=== PATIENT | female | born 1970 | race Caucasian/White ===

== ENCOUNTER → 2020-08-30 11:31 | Outpatient (BNVA) | payer MEDICAID, SELFPAY | PROVIDERS: Family Provider Family Medicine; PCP Family Medicine; Visit Provider Family Medicine | DX: E03.9 Hypothyroidism, unspecified (principal); J45.30 Mild persistent asthma, uncomplicated; M79.7 Fibromyalgia; F41.9 Anxiety disorder, unspecified; F32.9 Major depressive disorder, single episode, unspecified; Z00.00 Encounter for general adult medical examination without abnormal findings; Z86.69 Personal history of other diseases of the nervous system and sense organs | CPT/HCPCS: 80053; 84443; 85025 ==

== ENCOUNTER 2020-10-11 11:08 | Outpatient (CLI) | payer MEDICAID, SELFPAY ==
--- NOTE | 2020-10-11 11:12 | MM_ITS ---
WS: [id number] BILATERAL SCREENING DIGITAL MAMMOGRAM WITH CAD HISTORY: SCREENING COMPARISON: 09/25/2018 and 12/22/2015 Bilateral CC and MLO views submitted. Computer aided detection analyzed. Breast composition: There are scattered areas of fibroglandular density. No suspicious masses, microc alcifications or architectural distortion. Benign calcification in the central RIGHT breast. MM/[place] [id number] IMPRESSION: BI-RADS: 2-Benign FOLLOW UP: 1 Year Follow-up
== END 2020-10-11 11:09 | disposition home or self-care (01) ==
LOC: RADSHAW 11:10
PROVIDERS: Family Provider Family Medicine; PCP Family Medicine; Visit Provider Family Medicine
DX: Z12.31 Encounter for screening mammogram for malignant neoplasm of breast (principal)
CPT/HCPCS: 77067

== ENCOUNTER → 2021-03-14 13:45 | Outpatient (BNVA) | payer MEDICAID, SELFPAY | PROVIDERS: Family Provider Family Medicine; PCP Family Medicine; Visit Provider Nurse Practitioner Women's Health | DX: Z11.3 Encounter for screening for infections with a predominantly sexual mode of transmission (principal); N95.1 Menopausal and female climacteric states; N39.3 Stress incontinence (female) (male); R35.1 Nocturia | CPT/HCPCS: 87491; 87591; 87661 ==

== ENCOUNTER → 2021-03-28 10:08 | Outpatient (BNVA) | payer MEDICAID, SELFPAY | PROVIDERS: Family Provider Family Medicine; PCP Family Medicine; Visit Provider Obstetrics & Gynecology | DX: N39.3 Stress incontinence (female) (male) (principal); N81.10 Cystocele, unspecified | CPT/HCPCS: 81000 ==

== ENCOUNTER → 2021-05-19 08:38 | Outpatient (BNVA) | payer MEDICAID, SELFPAY | PROVIDERS: Family Provider Family Medicine; PCP Family Medicine; Visit Provider Obstetrics & Gynecology | DX: N39.3 Stress incontinence (female) (male) (principal) | CPT/HCPCS: 87635 ==

== ENCOUNTER 2021-05-24 12:30 | Observation (INO) | payer MEDICAID, SELFPAY ==
[2021-05-19 10:15] VITALS: BMI 32.1
--- NOTE | 2021-05-19 10:41 | P.ANESASSM_ITS ---
Pre-Anesthetic Assessment Pre-Anesthetic Assessment: Height/Weight: Height 1.8 m Weight 104.326 kg Proposed Procedure: Operation Date: 05/24/21 19:45 Proposed Procedures p Sling 53067 N39.3(Not Applicable) - Ephraim Harden MD Was Beta Leti taken within 24 hours: N/A Was Clonidine taken within 24 hours: N/A Social: Social History: Tobacco (Vapes) and No alcohol Exam: Pre-Anes Outpt Exam: alert, oriented x 3, clear to auscultation bilaterally and regular rate & rhythm Airway: Submandibular: WNL Cervical ROM: WNL MP: 2 Dentition: Full Pulmonary: Pulmonary: Asthma Metabolic: Metabolic: Thyroid Musc/skel: Musc/skel: Fibromyalgia Neuropsych: Neuropsych: Anxiety and Depression Anesthetic Plan: ASA status: 2 Anesthesia: General Risk of > 500 ml blood loss (7ml/kg in children): No PFSH Anesthesia PFSH: Medical History Anxiety and depression Fibromyalgia affecting multiple sites History of Guillain-[place] syndrome Hypothyroid Mild persistent asthma No pertinent past medical history neghx: htn,dm,dvt/pe PCP: Dr. 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 Cotto; had multiple adhesions. Hx of tonsillectomy (~1984) Family History Mother Hypertension Thyroid disease Sister Thyroid disease Denies family history of Colon cancer Ovarian cancer Diabetes Heart disease Hypercholesteremia Breast cancer Uterine cancer Stroke Data Anesthesia Cardiac Studies: No Data to Display
[2021-05-24] VITALS (18 sets, daily range): BP systolic 119–153; BP diastolic 64–93; PULSE 51–66; RESP 15–18; TEMP 36.3–37.1; O2SAT 92–98
[2021-05-24] MEDS: scopolamine 1.5 Patch 1 PATCH TRANSDERMA (08:02)
[2021-05-24] MEDS: lactated ringers 500 ML IV (08:04)
--- NOTE | 2021-05-24 08:31 | P.ANESUD_ITS ---
Pre-Anesthetic Update Pre-Anesthetic Assessment: Date of Surgery/Procedure: 05/24/21 Preop Estela gnosis: Cystocele stage I, stress urinary incontinence Proposed Procedure: Operation Date: 05/24/21 19:45 Proposed Procedures p Sling 04491 N39.3(Not Applicable) - Ephraim Harden MD Any changes to Pre-Anesthetic Assessment?: No Last Intake: Intake Last Liquid Date 05/23/21 Last Liquid Time 22:00 Last Solid Date 05/23/21 Last Solid Time 13:00 Vitals: Temperature 97.4 F L 05/24/21 07:50 Temperature Source Temporal Artery S can 05/24/21 07:50 Pulse Rate 58 L 05/24/21 07:50 Respiratory Rate 18 05/24/21 07:50 Blood Pressure 145/85 05/24/21 07:50 Blood Pressure Doreen n 105 05/24/21 07:50 Pulse Oximetry 98 05/24/21 07:50 Oxygen Delivery Me thod 05/24/21 07:50 Exam: Pre-Anes Outpt Exam: alert, oriented x 3, clear to auscultation bilaterally and regular rate & rhythm Cardiac Studies: No Data to Display
[2021-05-24 08:37] LABS: Basophils # 0.1 10^3/uL (0.0-0.1); Basophils % 0.6 %; Eosinophils # 0.4 10^3/uL (0.0-0.8); Eosinophils % 3.7 %; Hematocrit 38.7 % (37.0-47.0); Hemoglobin 12.5 g/dL (11.5-15.3); Lymphocytes # 2.4 10^3/uL (0.8-4.8); Lymphocytes % 24.8 %; Mean Corpuscular HGB Conc 32.3 g/dL (30.0-36.0); Mean Platelet Volume 9.2 fL (7.4-10.4); Monocytes # 0.6 10^3/uL (0.2-0.9); Monocytes % 6.3 %; Neutrophils # 6.13 10^3/uL (1.8-7.7); Neutrophils % 64.3 %; Nucleated Red Blood Cells % 0 %; Platelet Count 312 10^3/cmm (130-400); Red Blood Count 3.91 10^6/uL (4.1-5.3); Red Cell Distribution Width 12.6 % (12.1-15.1); White Blood Count 9.5 10^3/uL (4.0-10.0)
[2021-05-24 09:04] LABS: Anion Gap 15.2 (5-19); Blood Urea Nitrogen 20 mg/dL (6-20); Calcium 8.6 mg/dL (8.5-10.5); Carbon Dioxide 22 mmol/L (22-29); Chloride 104 mmol/L (98-107); Glomerular Filtration Rate 87.5 mL/min (90-130); Glucose 84 mg/dL (65-115); Osmolality Calculated 286 mOsm/kg (285-295); Potassium 4.2 mmol/L (3.5-5.1); Sodium 137 mmol/L (136-145)
[2021-05-24] MEDS: sodium chloride 0.9% 500 ML 999 ML IV (09:14)
[2021-05-24] MEDS: midazolam 1 mg/mL INJ 2 mL 2 MG IVP (09:15)
[2021-05-24 09:22] LABS: Add Urine Microscopic? YES; Bacteria Urine TRACE /hpf; Bilirubin Urine 1+ (Negative); Blood Urine Neg (Negative); Glucose Urine UA Norm (Normal); Ketones Urine Negative (Negative); Leukocyte Esterase Urine Negative (Negative); Mucus Urine 2+ /hpf; Nitrate Urine Negative (Negative); Protein Urine Neg (Negative); Urine Appearance SL Hazy (CLEAR); Urine Color Yellow (Yellow); Urobilinogen Urine Norm (Negative); WBC Urine 0-4 /hpf (0-5); pH Urine 5 (5-7)
[2021-05-24 09:23] LABS: Add Urine Culture? No
--- NOTE | 2021-05-24 11:09 | W.PM.OPSUD ---
Surgery/Procedure H&P Update DATE OF PROCEDURE: May 24, 2021 DATE H&P PERFORMED: 05/19/21 H&P UPDATE INFORMATION: I have reviewed H&P completed within last 30 days, I have examined patient prior to procedure and No changes to prior documentation PREOP DIAGNOSIS: Cystocele stage I, stress urinary incontinence PLANNED PROCEDURE: Operation Date: 05/24/21 10:15 Proposed Procedures p Sling 79650 N39.3(Not Applicable) - Ephraim Harden MD
--- NOTE | 2021-05-24 12:20 | PM.OP ---
Operative Report Date of procedure: May 24, 2021 Pre-op Diagnosis: Cystocele stage I, stress urinary incontinence Post-op diagnosis: same Procedure Done: Single incision mid urethral sling Pathology: none sent Surgeon: Ephraim Harden MD Estimated blood loss (mL): 10 IV fluids (mL): 800 Urine output (mL): 300 Condition: stable Disposition: PACU Procedure: After obtaining informed consent, the patient was taken to the operating room and placed in the supine position, given general anesthesia, and prepped and draped in sterile fashion. The abdomen, vulva and vagina were prepped and draped in a sterile manner. A time out procedure was performed. The anterior vaginal mucosa beneath the midurethra was infiltrated with 0.5% Marcaine with epinephrine. A vertical midline incision was made beneath the midurethra, nearly 1.5 cm length. Careful submucosal dissection was performed bilaterally up to the interior portion of the inferior pubic ramus. The insertion of adductor longus tendon on the patient?s pubic ramus was identified as reference land brandon. Palpated the notch along the internal edge of ischiopubic ramus where the adductor longus tendon and the inferior pubic ramus meet. The Altis single incision sling (SIS) was selected. With thin porcine graft the mesh of the sling was lined anteriorly and posteriorly with the graft. Then the needle of the SIS inserted aiming at the location of this notch. One of the integrated self-fixating tips place onto the needle by sliding it over the end of the needle. The needle/sling assembly was inserted toward the location of identified reference notch making sure that the flat of the handle is perpendicular to the desired path. The needle was tracked along the posterior surface of the ischiopubic ramus until the midline brandon on the mesh is approximately at the midline position under the urethra. The needle was removed and the same was repeated on the contralateral side until the appropriate sling tension under the urethra was achieved ensuring that the mesh lays flat. The needle was removed and vaginal incision was closed in a running interlocking fashion with 2-0 Vicryl. Excellent hemostasis was obtained. Sponge, lap, needle, and instrument counts were correct times three. The patient was taken to the recovery room, awake and in stable condition.
[2021-05-24] MEDS: fentaNYL 50 mcg/mL INJ 2mL IVP (12:27)
[2021-05-24] MEDS: albuterol 8 gm MDI 2 PUFF INHALATION ×2 (13:37→22:45)
[2021-05-24] MEDS: dextrose 5%-lactated ringers 1,000 ML 125 ML IV ×2 (14:06→22:51)
[2021-05-24] MEDS: HYDROcodone-acetaminophen 5-325 mg Tablet PO ×2 (14:17→20:14)
--- NOTE | 2021-05-24 14:34 | ANE.PACU2 ---
Inpatient post-anesthesia follow up: Airway intact: Yes Vital signs: Temperature 97.5 F Pulse Rate 62 Respiratory Rate 17 Blood Pressure 134/81 Pulse Oximetry 97 Oxygen Delivery Me thod Room Air Oxygen Flow Rate Fraction of Inspir ed Oxygen Hydration adequate: Yes Nausea and vomiting: No Pain level: 1 Mental status: Baseline
[2021-05-24] MEDS: docusate sodium 100 mg Capsule PO (18:49)
[2021-05-24] MEDS: ibuprofen 800 mg tablet PO (20:14)
[2021-05-25] MEDS: HYDROcodone-acetaminophen 5-325 mg Tablet PO (02:12)
[2021-05-25 05:39] LABS: Hematocrit 33.8 % (37.0-47.0); Hemoglobin 10.7 g/dL (11.5-15.3); Mean Corpuscular HGB Conc 31.7 g/dL (30.0-36.0); Mean Corpuscular Hemoglobin 31.8 pg (28.0-34.0); Mean Corpuscular Volume 100.6 fL (81-99); Mean Platelet Volume 9.3 fL (7.4-10.4); Platelet Count 298 10^3/cmm (130-400); Red Blood Count 3.36 10^6/uL (4.1-5.3); Red Cell Distribution Width 12.3 % (12.1-15.1); White Blood Count 12.3 10^3/uL (4.0-10.0)
[2021-05-25] MEDS: docusate sodium 100 mg Capsule PO (08:46)
[2021-05-25] MEDS: estradiol 1 mg Tablet PO (08:46)
[2021-05-25] MEDS: duloxetine 20 mg Capsule PO (08:47)
[2021-05-25] MEDS: levothyroxine 25 mcg Tablet PO (08:47)
[2021-05-25] MEDS: ibuprofen 800 mg tablet PO (08:47)
--- NOTE | 2021-05-25 09:24 | P.DS_ITS ---
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 Cutler female, with stress urinary incontinence. Admitted for planned single incision mid urethral sling. The procedure was performed without complications. Postop Overnight observation uneventful. Tolerated diet well. Ambulating without complication. PVR within normal limits. She is afebrile hemodynamically stable. Physical Exam Narrative: EXAM NARRATIVE: GA: Alert and oriented ?3. HEENT: WNL. Heart: Regular rate and rhythm. Lungs: Clear to auscultation bilaterally. Abdomen: Bowel sounds present, nontender, PNEUMATIC TUBE FITTER: Spotting. Extremities: No edema, no cyanosis, no calves pain. Urinary Catheter Management^: Singh: Cath Placed During This Visit: yes Urinary Catheter Date of Insertion: 05/24/21 Urinary Catheter Time of Insertion: 12:03 Discharge Data Data Completed and Pending: Labs from last 24 hours 05/25/21 05/24/21 05:32 08:00 WBC 12.3 H RBC 3.36 L Hgb 10.7 L Hct 33.8 L MCV 100.6 H MCH 31.8 MCHC 31.7 RDW 12.3 Plt Count 298 MPV 9.3 Blood Type O Positive Rho(D) Type Positive / 4+ Antibody Screen Negative Vitals: Last Vital Signs Temp 98.1 F 05/24/21 15:07 Pulse 64 05/24/21 22:45 Resp 18 05/24/21 22:45 BP 128/77 05/24/21 18:05 Pulse Ox 97 05/24/21 22:45 Discharge Plan Discharge Patient Disposition: Home Condition: Stable Prescriptions: New ibuprofen 800 mg tablet 800 mg PO TID PRN (Reason: pain) Qty: 60 RF: 0 hydrocodone-acetaminophen 5-325 mg tablet 1 tab PO Q4H PRN (Reason: pain) Qty: 10 RF: 0 nitrofurantoin macrocrystal 100 mg capsule 100 mg PO Q24H Qty: 10 RF: 0 Continued duloxetine [Cymbalta] 20 mg capsule,delayed release(DR/EC) 20 mg PO DAILY RF: 0 Spiriva Respimat 1.25 mcg/actuation mist 2 puff INHALATION DAILY Qty: 4 RF: 2 fluticasone propion-salmeterol [Advair Diskus] 250-50 mcg/dose blister with device 1 inh INHALATION BID 30 Days Qty: 60 RF: 4 levothyroxine [Levo-T] 25 mcg tablet 25 mcg PO DAILY 90 Days Qty: 90 RF: 1 diazepam 2 mg tablet 2 mg PO TID PRN (Reason: anxiety) Qty: 70 RF: 3 estradiol 1 mg tablet See Rx Instructions .ROUTE .COMPLEX Qty: 90 RF: 1 hydrocodone-acetaminophen 5-325 mg tablet 1 tab PO BID PRN (Reason: pain) 30 Days Qty: 60 RF: 0 tizanidine 4 mg capsule 4 mg PO TID PRN (Reason: muscle spasticity) Qty: 45 RF: 5 albuterol sulfate [Ventolin HFA] 90 mcg/actuation HFA aerosol inhaler 2 puff INHALATION QID PRN (Reason: shortness of breath or wheezing) 30 Days Qty: 8 RF: 5 Discharge Orders: Discharge Order (Routine); Ordered 05/25/21 Ordered By: Ephraim Harden Referrals: Ephraim Harden MD [Physician] - 2 weeks Discharge Diet: Usual diet Discharge Activity: Increase activity as tolerated Patient Instructions: Bladder Sling Procedures (DC), Opioid Safety Activity Restrictions/Additional Instructions: 1. Please call [facility] on next working day to make your post-operative appointment in 2 weeks. 2. Please stay home until you come back to the clinic on first post-operative check up. 3. Please follow instructions on your medications CAREFULLY. 4. If you have abdominal incision, do not cover it unless dressing is necessary because of drainage. OK to shower, but avoid bath. Leave steri-strips until they fall off. If they are still on one week after surgery, you may remove them. 5. If you had vaginal surgery or vaginal repair, Dr. Harden may instruct you to take SITZ bath. 6. Yellow, blood tinged odorous vaginal discharge is usually normal after hysterectomy or vaginal surgeries. 7. No sexual intercourse, tampons, or douches until you are completely released from the post-operative care. 8. Avoid constipation by eating right and maybe using some Metamucil or Milk of Magnesia. 9. All prescription refills are given during the working hours. Please do no wait till it runs out. Call the clinic at [phone] before your medication runs out. The clinic will get in touch with your doctor to prescribe medications if necessary. 10. Please remain within 40 mile radius from our hospital because emergencies do happen now and then during the post-operative period. 11. If you have stairs at home, take one step at a time slowly and minimize the number of trips. It helps to stay in one floor for the next few days. No lifting except what you can lift by one hand until you are released from the post-operative care. 12. Driving is discouraged until you are well healed. It may be 3-4 weeks before you feel strong enough to drive. You should be able to turn and look through the rear window without pain and you should be able to push the brake pedal very hard without pain before you drive. No fast rules, but SAFETY should be your primary concern. DO NOT drive if you are on sedating medications such as narcotics. 13. Call the clinic (during working hours) to make urgent appointment or go to the Emergency room, if any of the following occurs: i. Vaginal bleeding becomes heavy, more than a period. ii. Incision becomes red and sore, or drains pus. iii. Your temperature is over 100.4 or you have chill. iv. IV site becomes red and swollen (a little ``knot?? is usually OK) v. Persistent nausea and vomiting vi. Persistent constipation or diarrhea vii. Rash or allergic reaction to medications. 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
--- NOTE | 2021-05-25 10:06 | PC.NURSE ---
Called Tay in pharmacy, to discuss patient's history of Guillian [place] syndrome. Asked Tay if it was ok with the patient to receive the pneumonia vaccine before discharge. Tay was not sure if it was acceptable for the patient to receive the vaccine. The patient's research found that it was ok for her to receive the pneumonia vaccine as long as it was not the medication that caused the syndrome, that the patient could not receive flu vaccines for sure. 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
[2021-05-25] MEDS: albuterol 8 gm MDI 2 PUFF INHALATION (10:26)
[2021-05-25 10:27] VITALS: BP 144/100; PULSE 59; PULSE 77; RESP 16; RESP 18; TEMP 36.5; O2SAT 98
[2021-05-25 10:31] VITALS: PULSE 61
== END 2021-05-25 10:50 | disposition home or self-care (01) ==
LOC: OBGYN 12:30
PROVIDERS: Admitting Provider Obstetrics & Gynecology; PCP Family Medicine; Visit Provider Obstetrics & Gynecology
PROC: (CPT 57288; principal; 2021-05-24 10:15)
DX: N81.10 Cystocele, unspecified (principal); J45.909 Unspecified asthma, uncomplicated; M79.7 Fibromyalgia; E03.9 Hypothyroidism, unspecified; Z82.49 Family history of ischemic heart disease and other diseases of the circulatory system; Z87.891 Personal history of nicotine dependence
CPT/HCPCS: 57288; 36415; 51798; 80048; 81001; 85025; 85027; 86850; 86900; 94640; 96374; C1713; G0378; J0690; J1100; J1885; J2250; J2405; J2704; J3010; J7040; J8499

== ENCOUNTER → 2021-06-12 15:00 | Outpatient (BNVA) | payer MEDICAID, SELFPAY | PROVIDERS: PCP Family Medicine; Visit Provider Family Medicine | DX: D64.9 Anemia, unspecified (principal); F41.9 Anxiety disorder, unspecified; F32.9 Major depressive disorder, single episode, unspecified; M79.7 Fibromyalgia; D50.8 Other iron deficiency anemias | CPT/HCPCS: 85018 ==

== ENCOUNTER → 2021-08-23 14:09 | Outpatient (BNVA) | payer MEDICAID, SELFPAY | PROVIDERS: PCP Family Medicine; Visit Provider Family Medicine | DX: Z11.52 Encounter for screening for COVID-19 (principal); Z20.822 Contact with and (suspected) exposure to COVID-19 | CPT/HCPCS: 87635 ==

== ENCOUNTER → 2022-02-08 13:41 | Outpatient (BNVA) | payer MEDICAID, SELFPAY | PROVIDERS: PCP Family Medicine; Visit Provider Nurse Practitioner | DX: D50.8 Other iron deficiency anemias (principal); Z20.822 Contact with and (suspected) exposure to COVID-19 | CPT/HCPCS: 87635 ==

== ENCOUNTER 2022-02-14 05:52 | Day surgery (SDC) | payer MEDICAID, SELFPAY ==
[2022-02-12 11:22] VITALS: BMI 31.5
[2022-02-14 06:05] VITALS: BP 135/98; PULSE 59; RESP 17; TEMP 36.2; O2SAT 96
[2022-02-14] MEDS: sodium chloride 0.9% 1,000 ML 30 ML IV (06:15)
--- NOTE | 2022-02-14 06:51 | ANES.PREANE2 ---
Documented by User: Carlos Denis CRNA 02/14/22 06:55 Pre-Anesthetic Assessment Height/Weight: Height 1.78 m Weight 99.79 kg Temp Pulse Resp BP Pulse Ox 97.2 F L 59 L 17 135/98 96 02/14/22 06:05 02/14/22 06:05 02/14/22 06:05 02/14/22 06:05 02/14/22 06:05 Preop Diagnosis: upper gi symptoms Operation Date: 02/14/22 07:00 Proposed Procedures p EGD/Colon 80566 R10.9(Not Applicable) - David Wheeler MD s Colonoscopy 29182 R19.7(Not Applicable) - David Wheeler MD Familial anesthetic complications: none Was Beta Leti taken within 24 hours: N/A Was Clonidine taken within 24 hours: N/A Last intake: Intake Last Liquid Date 02/13/22 Last Liquid Time 22:30 Last Solid Date 02/12/22 Last Solid Time 20:00 Social No alcohol and No tobacco Exam alert, oriented x 3, clear to auscultation bilaterally and regular rate & rhythm Airway Submandibular: within normal limits Cervical ROM: within normal limits Mallampati: Class I Dentition: full Pulmonary Asthma, Exertional Dyspnea and Sleep Apnea CV/HEM Arrythmia None reported Hepatic None reported GI None reported Metabolic Thyroid Disease [facility] Fibromyalgia and Lower Back Pain Neuropsych Anxiety and Depression Anesthetic Plan ASA status: 2 Anesthesia: MAC Risk of > 500 ml blood loss (7ml/kg in children): No Medications/Allergies Home Medications Medication Instructions Recorded Confirmed Last Taken Type duloxetine 20 mg capsule,delayed 20 mg PO DAILY cap 05/19/21 02/14/22 02/13/22 History release (Cymbalta) fluticasone 250 mcg-salmeterol 50 1 inh INHALATION BID 30 Days #60 06/26/21 02/14/22 02/13/22 Rx mcg/dose blistr powdr for each inhalation (Advair Diskus) levothyroxine 25 mcg tablet 25 mcg PO DAILY 90 Days #90 tab 10/09/21 02/14/22 02/13/22 Rx (Levo-T) diazepam 2 mg tablet 2 mg PO TID PRN #70 tab 12/11/21 02/14/22 02/13/22 Rx tizanidine 4 mg capsule 4 mg PO TID PRN #45 cap 01/01/22 02/14/22 02/13/22 Rx albuterol sulfate 90 mcg/actuation 2 puff INHALATION QID PRN 30 Days 01/29/22 02/14/22 02/14/22 Rx aerosol inhaler (Ventolin HFA) #8 gm estradiol 1 mg tablet 1 mg PO DAILY 02/12/22 02/14/22 02/13/22 History ferrous sulfate 325 mg (65 mg 325 mg PO DAILY 02/12/22 02/14/22 02/13/22 History iron) tablet hydrocodone 5 mg-acetaminophen 325 1 tab PO BID 02/12/22 02/14/22 02/13/22 History mg tablet Allergies Allergy/AdvReac Type Severity Reaction Status Date / Time Sulfa (Sulfonamide Allergy Severe vomiting Verified 02/14/22 06:04 Antibiotics) Current Medications Generic Name Dose Route Start Last Admin Trade Name Freq PRN Reason Stop Dose Admin Sodium Chloride 1,000 mls @ 30 mls/hr 02/14/22 06:15 02/14/22 06:15 Sodium Chloride 0.9% IV 02/15/22 06:14 30 mls/hr .Q24H ELVIN Administration [facility] Anesthesia Medical History (Updated 10/24/21 @ 10:19 by David Wheeler MD) Anxiety and depression Fibromyalgia affecting multiple sites History of Guillain-[place] syndrome Hypothyroid Mild persistent asthma Surgical History (Updated 02/14/22 @ 07:28 by David Wheeler MD) H/O esophagogastroduodenoscopy (02/14/22) H/O vaginal surgery 05/24/2021- single incision mid urethral sling performed by Dr. 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 Cotto; had multiple adhesions. Hx of tonsillectomy (~1984) Status post colonoscopy (02/14/22) Family History Mother Hypertension Thyroid disease Sister Thyroid disease Denies family history of Colon cancer Ovarian cancer Diabetes Heart disease Hypercholesteremia Breast cancer Uterine cancer Stroke Social History Smoking and tobacco status: never smoked Alcohol intake: never Female Reproductive History Spontaneous abortions: No Data Anesthesia Cardiac Studies: No Data to Display
--- NOTE | 2022-02-14 07:02 | W.PM.OPSFHP ---
Same Day Surgery H&P Indication for Procedure/HPI DATE OF PROCEDURE: February 14, 2022 CHIEF COMPLAINT/INDICATIONFOR SURGICAL PROCEDURE: egd/colon PREOP DIAGNOSIS: upper gi symptoms PLANNED PROCEDURE: Operation Date: 02/14/22 07:00 Proposed Procedures p EGD/Colon 61572 R10.9(Not Applicable) - David Wheeler MD s Colonoscopy 35749 R19.7(Not Applicable) - David Wheeler MD Medications/Allergies* Home Medications Medication Instructions Recorded Confirmed Type duloxetine 20 mg capsule,delayed 20 mg PO DAILY cap 05/19/21 02/14/22 History release (Cymbalta) estradiol 1 mg tablet 1 mg PO DAILY 02/12/22 02/14/22 History ferrous sulfate 325 mg (65 mg 325 mg PO DAILY 02/12/22 02/14/22 History iron) tablet hydrocodone 5 mg-acetaminophen 325 1 tab PO BID 02/12/22 02/14/22 History mg tablet Allergies/Adverse Reactions Allergy/AdvReac Type Severity Reaction Status Date / Time Sulfa (Sulfonamide Allergy Severe vomiting Verified 02/14/22 06:04 Antibiotics) Current Medications: Generic Name Dose Route Start Last Admin Trade Name Freq PRN Reason Stop Dose Admin Sodium Chloride 1,000 mls @ 30 mls/hr 02/14/22 06:15 02/14/22 06:15 Sodium Chloride 0.9% IV 02/15/22 06:14 30 mls/hr .Q24H ELVIN Administration Pertinent History/Comorbid Conditions* Medical History (Updated 10/24/21 @ 10:19 by David Wheeler MD) Anxiety and depression Fibromyalgia affecting multiple sites History of Guillain-[place] syndrome Hypothyroid Mild persistent asthma Surgical History (Updated 10/24/21 @ 10:19 by David Wheeler MD) H/O vaginal surgery 05/24/2021- single incision mid urethral sling performed by Dr. 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 Cotto; had multiple adhesions. 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
--- NOTE | 2022-02-14 07:34 | ANE.PACU2 ---
Documented by User: Carlos Denis CRNA 02/14/22 07:34 Inpatient post-anesthesia follow up: Vital signs: Temperature 97.2 F Pulse Rate 59 Respiratory Rate 17 Blood Pressure 135/98 Pulse Oximetry 96 Oxygen Delivery Me thod Room Air Oxygen Flow Rate Fraction of Inspir ed Oxygen
[2022-02-14 07:35] VITALS: BP 137/60; PULSE 67; RESP 16; TEMP 36.5; O2SAT 93
== END 2022-02-14 07:55 | disposition home or self-care (01) ==
PROVIDERS: PCP Family Medicine; Visit Provider Surgery
PROC: 0DJ08ZZ Inspection of Upper Intestinal Tract, Via Natural or Artificial Opening Endoscopic (ICD-10-PCS; CPT 43235; principal; 2022-02-14 07:00)
PROC: 0DJD8ZZ Inspection of Lower Intestinal Tract, Via Natural or Artificial Opening Endoscopic (ICD-10-PCS; CPT 45378; 2022-02-14 07:00)
DX: R19.7 Diarrhea, unspecified (principal); R10.9 Unspecified abdominal pain; K29.70 Gastritis, unspecified, without bleeding; K64.8 Other hemorrhoids; E03.9 Hypothyroidism, unspecified; J45.30 Mild persistent asthma, uncomplicated; M79.7 Fibromyalgia
CPT/HCPCS: 43239; 45380; 82274; 83630; 87493; 87506; 88305; 88342; J2704; J7030

== ENCOUNTER → 2022-02-19 09:06 | Outpatient (BNVA) | payer MEDICAID, SELFPAY | PROVIDERS: PCP Family Medicine; Visit Provider Surgery | DX: Z09 Encounter for follow-up examination after completed treatment for conditions other than malignant neoplasm (principal) | CPT/HCPCS: 99212 ==

== ENCOUNTER → 2022-10-02 14:28 | Outpatient (BNVA) | payer MEDICAID, SELFPAY | PROVIDERS: PCP Family Medicine; Visit Provider Family Medicine | DX: E03.9 Hypothyroidism, unspecified (principal); D64.9 Anemia, unspecified | CPT/HCPCS: 80053; 84443; 85025 ==

== ENCOUNTER → 2023-09-16 13:59 | Outpatient (BNVA) | payer MEDICAID, SELFPAY | PROVIDERS: PCP Family Medicine; Visit Provider Family Medicine | DX: E03.9 Hypothyroidism, unspecified (principal) | CPT/HCPCS: 80053; 84443; 85025 ==

== ENCOUNTER → 2025-09-30 12:40 | Outpatient (BNVA) | payer MEDICAID, SELFPAY | PROVIDERS: PCP Family Medicine; Visit Provider Family Medicine | DX: E03.9 Hypothyroidism, unspecified (principal) | CPT/HCPCS: 80053; 84443; 85025 ==

== ENCOUNTER 2025-10-27 11:51 | Outpatient (CLI) | payer MEDICAID, SELFPAY ==
--- NOTE | 2025-10-27 12:40 | MM_ITS ---
WS: [id number] BILATERAL 3D TOMOSYNTHESIS DIGITAL SCREENING MAMMOGRAPHY WITH CAD CLINICAL INFORMATION: screening HISTORY: Screening mammogram. No current complaints. COMPARISON: 2020 TECHNIQUE: Bilateral CC and MLO views. FINDINGS: Scattered fibroglandular densities bilaterally. No suspicious focal mass, asymmetry, calcifications, or architectural distortion. No evidence of malignancy. Lucent centered calcification RIGHT breast MM/MM scr BI tomosynthesis [id number] IMPRESSION: DENSITY: There are scattered areas of fibroglandular density. BI-RADS: 2 - Benign. FOLLOW UP: 1 Year Follow-up Recommend return to annual screening mammography.
== END 2025-10-27 11:52 | disposition home or self-care (01) ==
LOC: RAD 11:52
PROVIDERS: PCP Family Medicine; Visit Provider Family Medicine
DX: Z12.31 Encounter for screening mammogram for malignant neoplasm of breast (principal); R92.323 Mammographic fibroglandular density, bilateral breasts; R92.1 Mammographic calcification found on diagnostic imaging of breast
CPT/HCPCS: 77063; 77067